=== PATIENT | female | born 1985 | race Two or more races ===

== ENCOUNTER 2019-04-03 23:01 | Emergency (ER) | payer MEDICAID, OTHER ==
[~2019-04-03] VITALS: Ht 154.9 cm; Wt 54.4 kg
--- NOTE | 2019-04-03 23:46 | NUR ---
PT CAME INTO THE ED C/O NAUSEA, DIARRHEA, FEVER, CHILLS, COUGH, PAIN WITH COUGHING X3 DAYS NO TYLENOL OR MOTRIN SINCE THE MORNING. PT AAOX4, VSS, BRAETHING EVEN AND UNLABORED ON RA W/ NAD NOTED. PT CONNECTED TO THE MONITOR AND POX
[2019-04-03] MEDS ORDERED: METOCLOPRAMIDE HCL 10 MG/2 ML VIAL ONE (23:52)
[2019-04-03] MEDS ORDERED: KETOROLAC TROMETHAMINE 15 MG/ML VIAL ONE (23:52)
[2019-04-04] MEDS ORDERED: KETOROLAC TROMETHAMINE INJ 30 MG/ML VIAL IV ONE
[2019-04-04] MEDS ORDERED: IV NS 0.9% 1,000 ML BAG IV ONE
[2019-04-04] MEDS ORDERED: METOCLOPRAMIDE HCL 10 MG/2 ML VIAL IV ONE
[2019-04-04 00:03] LABS: BASOPHILS % (AUTO) 0.4 % (0.0-2.0); EOSINOPHILS % (AUTO) 0.1 % (0.0-6.0); HEMATOCRIT 38 % (33-45); HEMOGLOBIN 12.9 g/dL (11.5-14.8); LYMPHOCYTES % (AUTO) 11.1 % (20.0-44.0); MEAN CORPUSCULAR HGB CONC 34 g/dl (31.0-36.0); MEAN CORPUSCULAR VOLUME 87 fL (82-100); MONOCYTES # (AUTO) 0.6 /CMM (0.1-1.30); MONOCYTES % (AUTO) 6.4 % (2.0-12.0); NEUTROPHILS # (AUTO) 7.6 /CMM (1.8-8.9); PLATELET COUNT (AUTO) 126 /CMM (150-450); RED BLOOD CELL COUNT(AUTO) 4.42 MIL/uL (4.0-5.2); WHITE BLOOD COUNT (AUTO) 9.3 K/uL (4.3-11.0)
[2019-04-04 00:06] LABS: APPEARANCE,URINE Clear (CLEAR); BILIRUBIN,URINE Negative (NEGATIVE); BLOOD, URINE Trace-lysed Ery/uL (NEGATIVE); COLOR,URINE Yellow (YELLOW); KETONES,URINE Negative (NEGATIVE); LEUKOCYTE ESTERASE ,URINE Negative (NEGATIVE); NITRITE, URINE Negative (NEGATIVE); PH,URINE 5.5 (5.0-8.0); PROTEIN,URINE 30 mg/dl (NEGATIVE); UGLUCOSE 250 MG/DL mg/dL (NEGATIVE); UROBILINOGEN,URINE 0.2 EU/dL (0.2)
[2019-04-04 00:12] LABS: CALCIUM, SERUM 8.7 mg/dL (8.5-10.1); CARBON DIOXIDE 26 mmol/L (21-32); CHLORIDE 102 mmol/L (98-107); CREATININE 0.7 mg/dL (0.6-1.3); GLUCOSE 99 mg/dL (74-106); POTASSIUM 3.2 mmol/L (3.5-5.1); SODIUM SERUM 136 mmol/L (136-145); UREA NITROGEN, BLOOD 7 mg/dL (7-18)
--- NOTE | 2019-04-04 00:12 | NUR ---
SWAB SENT TO LAB
[2019-04-04 00:28] LABS: ALANINE AMINOTRANSFERASE 20 U/L (12-78); ALBUMIN 3.7 g/dL (3.4-5.0); ALKALINE PHOSPHATASE 46 U/L (46-116); ASPARTATE AMINOTRANSFERASE 22 U/L (15-37); BILIRUBIN,DIRECT 0.1 mg/dL (0.0-0.2); BILIRUBIN,TOTAL 0.2 mg/dL (0.2-1.0); TOTAL PROTEIN, SERUM 7.5 g/dL (6.4-8.2)
[2019-04-04 01:04] LABS: BACTERIA,URINE None seen /HPF (None Seen); MUCUS,URINE Many /LPF (None Seen); SQUAMOUS EPITHELIAL CELL,UR Few /HPF (None Seen); WBC,URINE 0-2 /HPF (0-3)
[2019-04-04 02:10] VITALS: BP 98/62
--- NOTE | 2019-04-04 02:10 | NUR ---
Patient discharged to home in stable condition. Written and verbal after care instructions given. Patient verbalizes understanding of instruction.IV removed. Catheter intact and site benign. Pressure and 4x4 applied to site. No bleeding noted.
== END 2019-04-04 02:11 | disposition home or self-care (01) ==
LOC: ER 23:03
DX: B34.9 Viral infection, unspecified (principal); R11.2 Nausea with vomiting, unspecified; F17.200 Nicotine dependence, unspecified, uncomplicated
CPT/HCPCS: 36415; 71045; 80048; 80076; 81001; 83690; 84484; 84703; 85025; 87804 ×2; 93005 ×2; 96361; 96374; 96375; 99284; J1885; J2765; J7030; 81000-TC

== ENCOUNTER 2021-06-08 23:28 | Emergency (ER) | payer OTHER ==
[~2021-06-08] VITALS: Ht 157.5 cm; Wt 52.2 kg
--- NOTE | 2021-06-08 23:50 | NUR ---
BIBS C/O LEFT SIDED NUMBNESS X4 HOURS WITH PAIN ON LEFT SIDE OF NECK RADIATING TO BACK. PATIENT ALERT AND ORIENTED X3. AMBULATORY WITH NON LABORED BREATHING.
[2021-06-08] MEDS ORDERED: IBUP-1957 PO (23:58)
[2021-06-08] MEDS ORDERED: CARI350T PO (23:58)
[2021-06-09 00:24] VITALS: BP 121/60
--- NOTE | 2021-06-09 00:24 | NUR ---
Patient discharged to home in stable condition. Written and verbal after care instructions given. Patient verbalizes understanding of instruction.
== END 2021-06-09 00:25 | disposition home or self-care (01) ==
LOC: ER 23:37
DX: M62.838 Other muscle spasm (principal); M54.12 Radiculopathy, cervical region; F17.200 Nicotine dependence, unspecified, uncomplicated; Z79.1 Long term (current) use of non-steroidal anti-inflammatories (NSAID); Z79.899 Other long term (current) drug therapy

== ENCOUNTER 2023-12-24 18:55 | Emergency (ER) | payer OTHER ==
[~2023-12-24] VITALS: Ht 157.5 cm; Wt 54.4 kg
[~2023-12-24 18:55] MED LIST: CARI350T PO; IBUP-1957 PO
[2023-12-24] MEDS ORDERED: LIDO30AD10 TP (21:51)
[2023-12-24] MEDS ORDERED: CYCL5TAB PO (21:51)
[2023-12-24] MEDS ORDERED: IBUP-1955 PO (21:51)
[2023-12-24 23:29] VITALS: BP 91/55; TEMP 98.5; O2SAT 99
== END 2023-12-24 23:29 | disposition home or self-care (01) ==
LOC: ER 19:03
DX: S09.8XXA Other specified injuries of head, initial encounter (principal); S40.022A Contusion of left upper arm, initial encounter; S70.02XA Contusion of left hip, initial encounter; S70.01XA Contusion of right hip, initial encounter; R07.81 Pleurodynia; M79.10 Myalgia, unspecified site; F17.200 Nicotine dependence, unspecified, uncomplicated; R07.89 Other chest pain; Z79.1 Long term (current) use of non-steroidal anti-inflammatories (NSAID); V47.6XXA Car passenger injured in collision with fixed or stationary object in traffic accident, initial encounter; Y93.89 Activity, other specified; Y92.481 Parking lot as the place of occurrence of the external cause; Y99.8 Other external cause status
CPT/HCPCS: 71100-TC